=== PATIENT | male | born 1930 | race Caucasian/White ===

== ENCOUNTER 2017-09-01 20:31 | Inpatient (IN) | payer OTHER ==
[2017-09-01 21:19] VITALS: BMI 29.8
--- NOTE | 2017-09-01 22:07 | PDOC ---
History of Present Illness - General History Source: Patient, Family Exam Limitations: No Limitations - History of Present Illness Initial Comments: 09/01/17 22:33 The patient is a 86 year old male, with a significant past medical history of BPH, who presents to the emergency department with, 2 days gross hematuria. The patient was sent in by Dr. Alfredo Lorenzo for gross hematuria and associated nausea without emesis for further medical evaluation. As per patients family, he saw a urologist a few months ago who prescribed him Flomax for his urinary retention. Yesterday his hematuria was light, however, today has gotten progressively worse. He has no prior episodes of hematuria. He denies any recent fevers, chills, headache or dizziness. He denies any recent vomit, diarrhea or constipation. He denies any recent chest pain or shortness of breath. He denies any recent dysuria, frequency, urgency or hematuria. Allergies: NKA Past surgical history: None reported. Social History: Nonsmoker. Denies EtOH use and recreational drug use. Primary Care Physician: Dr. Deangelo Lorenzo Urologist: Dr. Alfredo Lorenzo [phone] <Juana Nicholas - Last Filed: 09/01/17 23:56> <Natalya Mcmullen - Last Filed: 09/02/17 00:14> - General Chief Complaint: Hematuria Stated Complaint: BLOOD IN URINE Time Seen by Provider: 09/01/17 22:06 Past History <Juana Nicholas - Last Filed: 09/01/17 23:56> - Past Medical History COPD: No Disorders: Yes (Prostate) - Suicide/Smoking/Psychosocial Hx Smoking History: Never smoked Information on smoking cessation initiated: No Hx Alcohol Use: No Drug/Substance Use Hx: No <Natalya Mcmullen - Last Filed: 09/02/17 00:14> - Past Medical History Allergies/Adverse Reactions: Allergies Allergy/AdvReac Type Severity Reaction Status Date / Time No Known Allergies Allergy Unverified 03/19/15 08:24 Review of Systems - Review of Systems Able to Perform ROS?: Yes Comments:: 09/01/17 22:34 CONSTITUTIONAL: Absent: fever, no chills, no fatigue EYES: Absent: visual changes ENT: Absent: ear pain, no sore throat CARDIOVASCULAR: Absent: chest pain, no palpitations RESPIRATORY: Absent: cough, no SOB GI: Present: Nausea. Absent: abdominal pain, no vomiting, no constipation, no diarrhea GENITOURINARY: Present: Hematuria. Urinary Retention. Absent: dysuria, no frequency, no hematuria MUSKULOSKELETAL: Absent: back pain, no arthralgia, no myalgia SKIN: Absent: rash NEURO: Absent: headache All Other Systems: Reviewed and Negative <Juana Nicholas - Last Filed: 09/01/17 23:56> *Physical Exam - Vital Signs Last Vital Signs Temp Pulse Resp BP Pulse Ox 99.7 F H 98 H 20 127/78 100 09/01/17 21:14 09/01/17 21:14 09/01/17 21:14 09/01/17 21:14 09/01/17 21:14 - Physical Exam Comments: 09/01/17 22:44 GENERAL: Well developed, well nourished. Looking younger than stated age. Awake and alert. No acute distress. HEENT: Normocephalic, atraumatic. PERRLA, EOMI. No conjunctival pallor. Sclera are non- icteric. Moist mucous membranes. Oropharynx is clear. NECK: Supple. Full ROM. No JVD. Carotid pulses 2+ and symmetric, without bruits. No thyromegaly. No lymphadenopathy. CARDIOVASCULAR: Regular rate and rhythm. No murmurs, rubs, or gallops. Distal pulses are 2+ and symmetric. PULMONARY: No evidence of respiratory distress. Lungs clear to auscultation bilaterally. No wheezing, rales or rhonchi. ABDOMINAL: Soft. Non-tender. Non-distended. No rebound or guarding. No organomegaly. Normoactive bowel sounds. BACK: No flank pain. MUSCULOSKELETAL Normal range of motion at all joints. No bony deformities or tenderness. No CVA tenderness. EXTREMITIES: No cyanosis. No clubbing. No edema. No calf tenderness. SKIN: Warm and dry. Normal capillary refill. No rashes. No jaundice. NEUROLOGICAL: Alert, awake, appropriate. Cranial nerves 2-12 intact. No deficits to light touch and temperature in face, upper extremities and lower extremities. No motor deficits in the in face, upper extremities and lower extremities. Normoreflexic in the upper and lower extremities. Normal speech. Toes are down- going bilaterally. Gait is normal without ataxia. PSYCHIATRIC: Cooperative. Good eye contact. Appropriate mood and affect. <Juana Nicholas - Last Filed: 09/01/17 23:56> - Vital Signs Last Vital Signs Temp Pulse Resp BP Pulse Ox 99.7 F H 98 H 20 127/78 100 09/01/17 21:14 09/01/17 21:14 09/01/17 21:14 09/01/17 21:14 09/01/17 21:14 <Natalya Mcmullen - Last Filed: 09/02/17 00:14> ED Treatment Course - LABORATORY CBC & Chemistry Diagram: 09/01/17 23:00 09/01/17 23:00 <Juana Nicholas - Last Filed: 09/01/17 23:56> - LABORATORY CBC & Chemistry Diagram: 09/01/17 23:00 09/01/17 23:00 <Natalya Mcmullen - Last Filed: 09/02/17 00:14> Medical Decision Making - Critical Care Time Total Critical Care Time (minutes): 60 Critical Care Statement: The care of this patient involved high complexity decision making to prevent further life threatening deterioration of the patient 's condition and/or to evaluate & treat vital organ system(s) failure or risk of failure. <Juana Nicholas - Last Filed: 09/01/17 23:56> - Medical Decision Making 09/01/17 23:59 86-year-old male presents with hematuria and urinary retention. Past medical history is BPH pcp DR FELDER SPOKE W UROLOGIST Dr Veto Lorenzo who wants admission,CBI -pt has low grade temp ,lsukocytosis,UTI and will receive antibiotics <Natalya Mcmullen - Last Filed: 09/02/17 00:14> *DC/Admit/Observation/Transfer - Attestations Scribe Attestion: 09/01/17 22:44 Documentation prepared by Juana Nicholas, acting as medical device for Natalya Mcmullen MD. <Juana Nicholas - Last Filed: 09/01/17 23:56> - Discharge Dispostion Decision to Admit order: Yes <Natalya Mcmullen - Last Filed: 09/02/17 00:14> Diagnosis at time of Disposition: SIRS (systemic inflammatory response syndrome) Fever Qualifiers: Fever type: due to other condition Qualified Code(s): R50.81 - Fever presenting with conditions classified elsewhere UTI (urinary tract infection) Qualifiers: Urinary tract infection type: site unspecified Hematuria presence: with hematuria Qualified Code(s): N39.0 - Urinary tract infection, site not specified ; R31.9 - Hematuria, unspecified Hematuria Qualifiers: Hematuria type: gross Qualified Code(s): R31.0 - Gross hematuria BPH (benign prostatic hyperplasia) Qualifiers: Lower urinary tract symptom presence: symptoms present Lower urinary tract symptom detail: urinary retention Qualified Code(s): N40.1 - Benign prostatic hyperplasia with lower urinary tract symptoms; R33.8 - Other retention of urine - Referrals Referrals: Deangelo Lorenzo MD [Primary Care Provider] - - Patient Instructions - Post Discharge Activity
[2017-09-01] MEDS ORDERED: ONDANSETRON 4 MG/2 ML VIAL IVPUSH ONE (22:08)
[2017-09-01] MEDS ORDERED: ONDANSETRON 4 MG/2 ML VIAL ONE (22:28)
[2017-09-01 23:23] LABS: VENOUS PH 7.46 (7.32-7.42); VENOUS PO2 56.2 mmHg (28-48)
[2017-09-01 23:30] LABS: URINE APPEARANCE CLEAR; URINE BILIRUBIN NEGATIVE (<2.0 mg/dL); URINE COLOR RED; URINE GLUCOSE (UA) 1+ (NEGATIVE); URINE KETONE NEGATIVE (NEGATIVE); URINE LEUK ESTERASE NEGATIVE (NEGATIVE); URINE NITRITE POSITIVE (NEGATIVE); URINE UROBILINOGEN NEGATIVE mg/dL (0.2-1.0)
[2017-09-01 23:34] LABS: BASO % 0.2 % (0-2.0); HEMATOCRIT 43.1 % (35.4-49); HEMOGLOBIN 14.5 GM/dL (11.7-16.9); LYMPH % 6.9 % (8-40); MCH 29.3 pg (25.7-33.7); MCHC 33.5 g/dl (32.0-35.9); MEAN CELL VOLUME 87.4 fl (80-96); MEAN PLT VOLUME 7.9 fl (7.5-11.1); NEUT % 88.9 % (42.8-82.8); RBC 4.94 M/mm3 (4.00-5.60); RDW 13.7 % (11.9-15.9); WHITE BLOOD COUNT 15.7 K/mm3 (4.0-10.0)
[2017-09-01 23:39] LABS: URINE PROTEIN 2+ (NEGATIVE)
[2017-09-01 23:43] LABS: URINE BACTERIA MANY /hpf (NONE SEEN); URINE MUCUS FEW
[2017-09-01 23:45] LABS: ALBUMIN 3.7 g/dl (3.4-5.0); ALK PHOS 49 U/L (45-117); ANION GAP 8 (8-16); BILIRUBIN,TOTAL 1.1 mg/dL (0.2-1.0); BLOOD UREA NITROGEN 22 mg/dL (7-18); CALCIUM 8.7 mg/dL (8.5-10.1); CHLORIDE 100 mmol/L (98-107); CO2 26 mmol/L (21-32); CREATININE 1.2 mg/dL (0.7-1.3); GLUCOSE,RANDOM 140 mg/dL (74-106); SGOT/AST 13 U/L (15-37); SGPT/ALT 20 U/L (12-78); SODIUM 134 mmol/L (136-145); TOT PROT 6.9 g/dl (6.4-8.2)
[2017-09-01] MEDS ORDERED: LIDOCAINE HCL 2% JELLY 10 ML CARTRIDGE ONE (23:46)
[2017-09-01 23:50] LABS: INR 1.13 (0.82-1.09); PROTHROMBIN TIME (PATIENT) 12.8 SEC (9.7-13.0)
[2017-09-01 23:55] LABS: PLATELET COUNT 145 K/MM3 (134-434)
[2017-09-01] MEDS ORDERED: CEFTRIAXONE 1,000 MG in DEXTROSE 5%-WATER - 50 ML IVPB ONE (23:59)
[2017-09-02] MEDS ORDERED: ACETAMINOPHEN 325 MG TABLET (FP) PO ONE (00:03)
[2017-09-02] MEDS ORDERED: CEFTRIAXONE 1 GM/50 ML BAG ONE (00:36)
[2017-09-02] MEDS ORDERED: ACETAMINOPHEN 325 MG TABLET (FP) ONE ×2 (00:36→00:39)
[2017-09-02] MEDS ORDERED: ACETAMINOPHEN 325 MG TABLET (FP) PO PRN (02:40)
[2017-09-02] MEDS: DEXTROSE 5%-0.45% SALINE 1,000 ML IV SCH ×2 (05:47→19:30)
[2017-09-02 06:40] LABS: BASO % 0.2 % (0-2.0); EOS % 0.1 % (0-4.5); HEMATOCRIT 38.7 % (35.4-49); HEMOGLOBIN 13.2 GM/dL (11.7-16.9); LYMPH % 9.8 % (8-40); MCHC 34.2 g/dl (32.0-35.9); MEAN CELL VOLUME 87.5 fl (80-96); MEAN PLT VOLUME 7.2 fl (7.5-11.1); MONO % 4.6 % (3.8-10.2); NEUT % 85.3 % (42.8-82.8); PLATELET COUNT 124 K/MM3 (134-434); RBC 4.42 M/mm3 (4.00-5.60); RDW 13.6 % (11.9-15.9); WHITE BLOOD COUNT 12.7 K/mm3 (4.0-10.0)
[2017-09-02 06:58] LABS: ALBUMIN 3.2 g/dl (3.4-5.0); ANION GAP 9 (8-16); BLOOD UREA NITROGEN 19 mg/dL (7-18); CALCIUM 8.3 mg/dL (8.5-10.1); CHLORIDE 100 mmol/L (98-107); CO2 30 mmol/L (21-32); GLUCOSE,RANDOM 107 mg/dL (74-106); POTASSIUM 3.8 mmol/L (3.5-5.1); SODIUM 139 mmol/L (136-145)
[2017-09-02 07:01] LABS: ALK PHOS 43 U/L (45-117); BILIRUBIN,TOTAL 1.2 mg/dL (0.2-1.0); CREATININE 1.1 mg/dL (0.7-1.3); SGOT/AST 11 U/L (15-37); SGPT/ALT 17 U/L (12-78); TOT PROT 6.2 g/dl (6.4-8.2)
[2017-09-02] MEDS: TAMSULOSIN HCL 0.4 MG CAP.ER.24H (FP) PO SCH (08:43)
--- NOTE | 2017-09-02 09:08 | CON.ID ---
Consult Consult Specialty:: infectious disease Referred by:: akbar Reason for Consultation:: hematuria - History of Present Illness Chief Complaint: 2 day history of hematuria History of Present Illness: 86 year old man admitted with 2 day history of worsening difficulty urinating and hematuria- no fevers or chills recent amox for dental infection- completed 10 days ago called his urologist yesterday and told to come to ED no constipation no abdominal pain no nausea or vomiting started on flomax 3 months ago by PMD wakes up multiple times at night to urinate only other med is baby aspirin 81 mg - History Source History Provided By: Patient, Family Member Limitations to Obtaining History: No Limitations - Past Medical History Heme/Onc: Yes: Cancer (breast cancer 30 years ago) - Past Surgical History Additional Surgical History: breast cancer surgery 30 years ago - Alcohol/Substance Use Hx Alcohol Use: No - Smoking History Smoking history: Former smoker Have you smoked in the past 12 months: No - Social History Usual Living Arrangement: With Spouse ADL: Independent 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 Place of : Other ([place]) History of Recent Travel: No Home Medications - Allergies Allergies/Adverse Reactions: Allergies Allergy/AdvReac Type Severity Reaction Status Date / Time No Known Allergies Allergy Unverified 03/19/15 08:24 - Home Medications Home Medications: Ambulatory Orders Tamsulosin HCl [Flomax] 0.4 mg PO DAILY 09/02/17 Family Disease History - Family Disease History Family History: Unremarkable Review of Systems - Review of Systems Constitutional: reports: No Symptoms Eyes: reports: No Symptoms HENT: reports: No Symptoms Neck: reports: No Symptoms Cardiovascular: reports: No Symptoms. denies: Chest Pain, Edema Respiratory: reports: No Symptoms. denies: Cough, SOB Gastrointestinal: reports: No Symptoms. denies: Abdominal Pain, Constipation, Diarrhea, Nausea, Vomiting Genitourinary: reports: Frequency, Hematuria Breasts: reports: No Symptoms Reported Musculoskeletal: reports: No Symptoms Integumentary: reports: No Symptoms Neurological: reports: No Symptoms Endocrine: reports: No Symptoms Hematology/Lymphatic: reports: No Symptoms Psychiatric: reports: No Symptoms Physical Exam Vital Signs: Vital Signs Temperature 98.1 F 09/02/17 06:00 Pulse Rate 63 09/02/17 06:00 Respiratory Rate 20 09/02/17 06:00 Blood Pressure 167/80 09/02/17 06:00 O2 Sat by Pulse Oximetry (%) 98 09/02/17 04:20 Constitutional: Yes: Well Nourished, No Distress, Calm Eyes: Yes: Conjunctiva Clear, EOM Intact HENT: Yes: Atraumatic, Normocephalic Neck: Yes: Supple Cardiovascular: Yes: Regular Rate and Rhythm Respiratory: Yes: Regular, CTA Bilaterally Gastrointestinal: Yes: Normal Bowel Sounds, Soft. No: Ascites, Distention ...Rectal Exam: Yes: Deferred Renal/: Yes: Breaux Present. No: Bladder Distention Musculoskeletal: Yes: WNL Extremities: Yes: WNL Edema: No Integumentary: Yes: WNL Neurological: Yes: Alert, Oriented Labs: CBC, BMP 09/02/17 06:00 09/02/17 06:00 Laboratory Tests 09/01/17 09/01/17 09/02/17 22:52 22:52 00:37 Lactic Acid 2.1 H 1.7 Urine Protein 2+ H Urine Glucose (UA) 1+ H Urine Ketones Negative Urine WBC (Auto) 411 Urine RBC (Auto) 1833 Urine Bacteria Many 09/02/17 06:00 Lactic Acid 1.7 Urine Protein Urine Glucose (UA) Urine Ketones Urine WBC (Auto) Urine RBC (Auto) Urine Bacteria Imaging - Results Ultrasound: Report Reviewed (markedly thickened bladder wall) Problem List - Problems (1) SIRS (systemic inflammatory response syndrome) Code(s): R65.10 - SIRS OF NON-INFECTIOUS ORIGIN W/O ACUTE ORGAN DYSFUNCTION (2) Hematuria Code(s): R31.9 - HEMATURIA, UNSPECIFIED Qualifiers: Hematuria type: gross Qualified Code(s): R31.0 - Gross hematuria (3) UTI (urinary tract infection) Code(s): N39.0 - URINARY TRACT INFECTION, SITE NOT SPECIFIED Qualifiers: Urinary tract infection type: site unspecified Hematuria presence: with hematuria Qualified Code(s): N39.0 - Urinary tract infection, site not specified; R31.9 - Hematuria, unspecified Assessment/Plan elevated lactic acid, fever of 99.7 on admission per family no prior history of UTI continue ceftriaxone for UTI f/u cultures for urology evaluation of hematuria
--- NOTE | 2017-09-02 09:41 | EKG ---
Test Reason : Blood Pressure : / mmHG Vent. Rate : 061 BPM Atrial Rate : 061 BPM P-R Int : 196 ms QRS Dur : 138 ms QT Int : 428 ms P-R-T Axes : 034 -72 -10 degrees QTc Int : 430 ms NORMAL SINUS RHYTHM LEFT AXIS DEVIATION RIGHT BUNDLE BRANCH BLOCK ABNORMAL ECG NO PREVIOUS ECGS AVAILABLE Confirmed by ELIZABET PATIÑO, TIA ([id number]) on 09/02/2017 9:41:18 AM Referred By: Confirmed By:TIA MCNEAL MD
[2017-09-02] MEDS ORDERED: cefTRIAXone SODIUM 1 GM VIAL ONE (10:12)
[2017-09-02] MEDS ORDERED: DEXTROSE 5%-WATER - 50 ML IVPB ONE (10:13)
[2017-09-02] MEDS: CEFTRIAXONE 1 GM in DEXTROSE 5%-WATER - 50 ML IVPB SCH (10:24)
--- NOTE | 2017-09-02 16:24 | CONS ---
DATE OF CONSULTATION: DATE OF DICTATION: 09/02/2017 HISTORY OF PRESENT ILLNESS: The patient is an 87-year-old male admitted via the emergency room last night with a 3-day history of gross, total-painless hematuria. The patient has symptoms of prostatism, including frequency, urgency, nocturia x7, terminal dribbling, hesitancy, and feelings of incomplete bladder emptying. He has been taking Flomax 2 capsules daily for the past 6 weeks. He denies any other medications. He denies any pre-existing conditions. He denies diabetes or high blood pressure. The patient did have a right radical mastectomy for breast cancer in 1996. 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 He quit smoking 30 years earlier, but did smoke for 30 years prior 2 packs per day. Denies ethanolism or any allergies. Denies any foreign travel. In the emergency room, the patient's temperature was 99.7, blood pressure 127/78, pulse rate 98, respirations 20, O2 saturation 100%. The patient was found to have a distended bladder and a 3-way Breaux with continuous bladder irrigation was commenced. For the first 6 hours, the egress was bloody, but presently it is clear. PHYSICAL EXAMINATION: General: Revealed a well developed and oriented adult male in no apparent distress. Abdomen: Soft. There is no CVA tenderness. Genitourinary: Bladder is not distended. The Breaux is patent. Urine is clear. Testes are normal in size and consistency. No hernias or hydroceles are elicited. Rectal: Exam revealed a 3+, benign, nontender prostate. Saddle sensation is present. Bulbocavernosus reflex is brisk. LABORATORY DATA: The patient's hemoglobin and hematocrit were 13/39. IMPRESSION: At present is an 87-year-old male with gross, total-painless hematuria of 3 days' duration, history of prostatism. Must rule out bladder pathology. PLAN: The patient will need renal-pelvic ultrasounds, followed by cystoscopy with possible TURBT, possible biopsy or possible fulguration. Will follow with you. NEETA ANDRES M.D. [id number]
[2017-09-02] MEDS ORDERED: BUPIVACAINE HCL/PF 0.5% (5MG/ML) 10 ML VIAL ONE (16:32)
[2017-09-02] MEDS ORDERED: LIDOCAINE HCL/PF 2% SDV 5ML VIAL ONE (16:35)
[2017-09-02] MEDS ORDERED: PROPOFOL 20 ML ONE (16:35)
[2017-09-02] MEDS ORDERED: DEXAMETHASONE SOD PHOSPHATE 4 MG/1 ML VIAL ONE (16:35)
[2017-09-02] MEDS ORDERED: ceFAZolin SODIUM 1 GM VIAL IVPB ONE ×2 (16:45)
[2017-09-02] MEDS ORDERED: oxyCODONE HCL 5 MG TABLET PO PRN (16:48)
[2017-09-02] MEDS ORDERED: ONDANSETRON 4 MG/2 ML VIAL IVPUSH PRN (16:48)
[2017-09-02] MEDS ORDERED: PROMETHAZINE HCL 25 MG/1 ML VIAL IVPB PRN (16:48)
[2017-09-02] MEDS ORDERED: ceFAZolin SODIUM 1 GM VIAL ONE (16:53)
--- NOTE | 2017-09-02 18:50 | HP ---
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 History of Recent Travel: No Home Medications - Allergies Allergies/Adverse Reactions: Allergies Allergy/AdvReac Type Severity Reaction Status Date / Time No Known Allergies Allergy Unverified 03/19/15 08:24 - Home Medications Home Medications: Ambulatory Orders Tamsulosin HCl [Flomax] 0.4 mg PO DAILY 09/02/17 Cefuroxime Axetil [Ceftin -] 500 mg PO BID #20 tablet 09/03/17 Oxybutynin Chloride [Ditropan -] 10 mg PO DAILY #30 tablet 09/03/17 Tamsulosin HCl [Flomax] 0.4 mg PO DAILY #30 cap.er.24h 09/03/17 Physical Examination Vital Signs: Vital Signs Temperature 98.5 F 09/02/17 14:28 Pulse Rate 71 09/02/17 14:28 Respiratory Rate 16 09/02/17 14:28 Blood Pressure 151/71 09/02/17 14:28 O2 Sat by Pulse Oximetry (%) 98 09/02/17 08:45 Labs: CBC, BMP 09/02/17 06:00 09/02/17 06:00 Problem List - Problems (1) BPH (benign prostatic hyperplasia) Code(s): N40.0 - BENIGN PROSTATIC HYPERPLASIA WITHOUT LOWER URINRY TRACT SYMP Qualifiers: Lower urinary tract symptom presence: symptoms present Lower urinary tract symptom detail: urinary retention Qualified Code(s): N40.1 - Benign prostatic hyperplasia with lower urinary tract symptoms; R33.8 - Other retention of urine (2) Hematuria Code(s): R31.9 - HEMATURIA, UNSPECIFIED Qualifiers: Hematuria type: gross Qualified Code(s): R31.0 - Gross hematuria (3) SIRS (systemic inflammatory response syndrome) Code(s): R65.10 - SIRS OF NON-INFECTIOUS ORIGIN W/O ACUTE ORGAN DYSFUNCTION
--- NOTE | 2017-09-02 20:54 | OP ---
DATE OF OPERATION: DATE OF DICTATION: 09/02/2017 PREOPERATIVE DIAGNOSIS: Patient is an 86-year-old male with clot retention, gross hematuria. POSTOPERATIVE DIAGNOSIS: Trabeculated bladder, hemorrhagic cystitis, and hemorrhagic obstructing prostate. OPERATIVE PROCEDURE: Cystourethroscopy. Evacuation of clots. Transurethral vaporization of prostate. Transurethral resection of prostate. ANESTHESIA: General. BLOOD LOSS: 40 mL. RESECTION TIME: 30 minutes under above stated anesthesia. DESCRIPTION OF PROCEDURE: Patient is prepped and draped in the usual sterile manner. A 30-degree continuous scope was introduced under direct vision. Anterior urethra was within normal limits. Prostatic urethra revealed trilobar hypertrophy of the prostate with severe hemorrhagic mucosa. The verumontanum was also injected. The bladder was entered. Several organized clots were seen in the bladder. An Ellik evacuator was introduced and the clots were evacuated. Inspection of a bladder revealed a grade 4 trabeculation with multiple diverticulum. Ureteral orifices were within normal limits with reflux of clear urine. No lesions were noted. No calculi were seen. Dome and lateral altamirano were clear of any lesions due to the bleeding, obstructing prostate and the grade 4 trabeculation. The prostate was then vaporized in the usual fashion. This was commenced at the 6 o'clock position of the right lateral lobe and went on up to the 12 o'clock position. Same thing was done to the left lateral lobe. Lastly, the median lobe was vaporized. Several loose chips were resected with a loop. Prostate chips were evacuated with an Ellik evacuator. No active bleeding was noted. Therefore the bladder was emptied, the scope was removed. The 24 Congolese 3-way, 30-mL Breaux was introduced. This was connected to continuous bladder irrigation. The patient tolerated the procedure well. He returned to the recovery room in good condition. Jaswinder [id number]
[2017-09-03 09:04] LABS: BASO % 0.1 % (0-2.0); HEMATOCRIT 39.4 % (35.4-49); HEMOGLOBIN 13.3 GM/dL (11.7-16.9); LYMPH % 7.9 % (8-40); MCH 29.8 pg (25.7-33.7); MCHC 33.7 g/dl (32.0-35.9); MEAN CELL VOLUME 88.4 fl (80-96); MONO % 4.8 % (3.8-10.2); NEUT % 87.2 % (42.8-82.8); PLATELET COUNT 128 K/MM3 (134-434); RBC 4.45 M/mm3 (4.00-5.60); RDW 13.8 % (11.9-15.9); WHITE BLOOD COUNT 12.3 K/mm3 (4.0-10.0)
[2017-09-03] MEDS ORDERED: cefTRIAXone SODIUM 1 GM VIAL ONE (09:04)
[2017-09-03] MEDS ORDERED: DEXTROSE 5%-WATER - 50 ML IVPB ONE (09:04)
--- NOTE | 2017-09-03 09:40 | PN ---
Progress Note (short form) - Note Progress Note: UROLOGY NOTE 86 Y/O Male with history of Gross hematuria S/P TUVP 09/02/2017 on CBI, doing well clear urine, no pain, will D/C CBI and connect the preciado to leg bag, patient can go home with preciado catheter to leg bag, keflex 500 mg TID, RTC Thursday09/07/2017 10 AM at [facility] .
[2017-09-03] MEDS: TAMSULOSIN HCL 0.4 MG CAP.ER.24H (FP) PO SCH (11:19)
[2017-09-03] MEDS: CEFTRIAXONE 1 GM in DEXTROSE 5%-WATER - 50 ML IVPB SCH (11:19)
[2017-09-03] MEDS ORDERED: OXYBUTYNIN CHLORIDE 5 MG TABLET PO SCH (11:45)
--- NOTE | 2017-09-03 13:00 | PN ---
Progress Note (short form) - Note Progress Note: Anesthesia postop note 86 y/o M s/p GA for cystoscopy POD#1, vss, aaox3, no complaints No anesthesia complications.
[2017-09-03 14:33] VITALS: BP 155/85; PULSE 62; TEMP 98.3
--- NOTE | 2017-09-03 14:55 | PN ---
Progress Note (short form) - Note Progress Note: ID NAD Ceftriaxone Selected Entries 09/03/17 14:32 Temperature 98.3 F Pulse Rate 62 Respiratory 16 Rate Blood Pressure 155/85 Abd Soft nontender Microbiology 09/01/17 23:00 Blood - Peripheral Venous Blood Culture - Preliminary NO GROWTH OBTAINED AFTER 24 HOURS, INCUBATION TO CONTINUE FOR 4 DAYS. 09/01/17 22:57 Blood - Peripheral Venous Blood Culture - Preliminary NO GROWTH OBTAINED AFTER 24 HOURS, INCUBATION TO CONTINUE FOR 4 DAYS. 09/01/17 22:52 Urine - Urine Clean Catch Urine Culture - Preliminary Lactose Fermenting Neg Bacilli Laboratory Tests 09/01/17 09/02/17 09/03/17 22:52 06:00 06:00 WBC 12.3 H Hgb 13.3 Plt Count 128 L BUN 19 H Creatinine 1.1 Creat Clearance w eGFR > 60 Ur Leukocyte Esterase Negative Urine WBC (Auto) 411 Urine Bacteria Many Assessment Gram negative UTI sensi pending Plan Discharge planning but would like to see final culture or follow up as outpt result ? Ceftin 500mg bid
[2017-09-03] MEDS ORDERED: CEFUROXIME AXETIL 500 MG TABLET PO SCH (22:00)
--- NOTE | 2017-09-04 15:31 | PATH ---
Surgical Pathology Report Patient Name: JUAN MANUEL PALACIO [facility]. Rec. #: [id number] /Age/Gender: 1930 (Age: 86) / M Account: [id number] Location: [facility] PEDS/ADOL Taken: 09/02/2017 Received: 09/03/2017 Reported: 09/04/2017 Physicians: Jaswinder Petit M.D. Specimen(s) Received PROSTATE CHIPS Clinical History Gross hematuria Final Diagnosis PROSTATE TISSUE, TRANSURETHRAL RESECTION OF PROSTATE AND BLADDER BLOOD CLOT EVACUATION: ACUTE CYSTITIS ADMIXED WITH BLOOD CLOTS CONSISTENT WITH HEMORRHAGIC CYSTITIS AND RARE MICROCALCIFICATIONS BENIGN PROSTATIC TISSUE WITH GLANDULAR AND STROMAL HYPERPLASIA. Electronically Signed Christie Melo M.D. Gross Description Received in formalin labeled "prostate tissue" are multiple fragments of white -sam focally hemorrhagic tissue measuring 2 x 1 x 0.5 cm in aggregate. Entire specimen submitted in one cassette. JAMA/09/03/2017 dano/09/03/2017
--- NOTE | 2017-09-10 12:00 | DS ---
Physical Examination Vital Signs: Vital Signs Temperature 98.3 F 09/03/17 14:32 Pulse Rate 62 09/03/17 14:32 Respiratory Rate 16 09/03/17 14:32 Blood Pressure 155/85 09/03/17 14:32 O2 Sat by Pulse Oximetry (%) 96 09/03/17 10:00 Labs: CBC, BMP 09/03/17 06:00 09/02/17 06:00 Discharge Summary Reason For Visit: FEVER SIRS UTI Condition: Good - Instructions Diet, Activity, Other Instructions: See Dr Joe Lorenzo on Thursday See Dr Deangelo Lorenzo on Thursday also Regular diet Referrals: Deangelo Lorenzo MD [Primary Care Provider] - Disposition: HOME - Home Medications Comprehensive Discharge Medication List: Ambulatory Orders Tamsulosin HCl [Flomax] 0.4 mg PO DAILY 09/02/17 Cefuroxime Axetil [Ceftin -] 500 mg PO BID #20 tablet 09/03/17 Oxybutynin Chloride [Ditropan -] 10 mg PO DAILY #30 tablet 09/03/17 Tamsulosin HCl [Flomax] 0.4 mg PO DAILY #30 cap.er.24h 09/03/17
== END 2017-09-03 17:44 | disposition home or self-care (01) | DRG 666 ==
LOC: JER 20:31 → SUPCPDRO 20:31 → JERBED 09-02 00:14 → UNDOADMIN 09-02 00:24 → JERBED 09-02 00:24 → J4S 09-02 03:08
PROVIDERS: ADMIT Internal Medicine; ATTEND Internal Medicine
PROC: 0V507ZZ Destruction of Prostate, Via Natural or Artificial Opening (ICD-10-PCS; 2017-09-02)
PROC: 0TCB8ZZ Extirpation of Matter from Bladder, Via Natural or Artificial Opening Endoscopic (ICD-10-PCS; 2017-09-02)
PROC: 0VT08ZZ Resection of Prostate, Via Natural or Artificial Opening Endoscopic (ICD-10-PCS; principal; 2017-09-02 14:00)
DX: N32.89 Other specified disorders of bladder (principal); N39.0 Urinary tract infection, site not specified; R31.0 Gross hematuria; N40.1 Benign prostatic hyperplasia with lower urinary tract symptoms; B96.20 Unspecified Escherichia coli [E. coli] as the cause of diseases classified elsewhere
CPT/HCPCS: 36415; 71045-TC-FY; 76775-TC; 76856-TC; 80053; 81003; 81015; 82803; 83605; 84484; 85025; 85610; 85730; 86850; 86900; 86901; 87040; 87086; 87186; 88305-TC; 93005; 93010; 94010; 94760; 99282-25

== ENCOUNTER 2020-05-17 16:50 | Emergency (ER) | payer OTHER ==
[2020-05-17 17:25] VITALS: TEMP 98.5; BMI 26.5
[2020-05-17 19:16] LABS: BASO % 1.1 % (0-2.0); EOS % 3.3 % (0-4.5); HEMATOCRIT 31.3 % (35.4-49); HEMOGLOBIN 10.1 GM/dL (11.7-16.9); LYMPH % 29.2 % (8-40); MCH 29.9 pg (25.7-33.7); MCHC 32.4 g/dl (32.0-35.9); MEAN CELL VOLUME 92.2 fl (80-96); MEAN PLT VOLUME 7.3 fl (7.5-11.1); MONO % 9.5 % (3.8-10.2); NEUT % 56.9 % (42.8-82.8); PLATELET COUNT 173 K/MM3 (134-434); RDW 16.3 % (11.9-15.9); WHITE BLOOD COUNT 4.1 K/mm3 (4.0-10.0)
[2020-05-17 19:21] VITALS: BP 119/88; PULSE 105
[2020-05-17 19:38] LABS: CALCIUM 8.6 mg/dL (8.5-10.1)
[2020-05-17 19:39] LABS: ALBUMIN 2.5 g/dl (3.4-5.0); BLOOD UREA NITROGEN 39.8 mg/dL (7-18)
[2020-05-17 19:42] LABS: CREATININE 2.3 mg/dL (0.55-1.3)
[2020-05-17 19:44] LABS: BILIRUBIN,TOTAL 0.2 mg/dL (0.2-1); TOT PROT 5.8 g/dl (6.4-8.2)
[2020-05-17 21:01] LABS: BF WBC & OTHER NUCLEATED CELLS 1552 /mm3
[2020-05-17 21:49] LABS: BODY FLUID MACROPHAGES 16 %; BODY FLUID MONOCYTE 2 %
== END 2020-05-17 19:30 | disposition home or self-care (01) ==
LOC: JER 16:50
DX: R84.9 Unspecified abnormal finding in specimens from respiratory organs and thorax (principal)
CPT/HCPCS: 36415; 71250-TC; 80053; 83615; 83880; 84484; 85025; 99285-25

== ENCOUNTER → 2020-07-31 | Day surgery (SDC) | payer OTHER | END | disposition home or self-care (01) | LOC: JRADIR 11:29 | PROVIDERS: ATTEND Internal Medicine | PROC: 0WP900Z Removal of Drainage Device from Right Pleural Cavity, Open Approach (ICD-10-PCS; principal; 2020-07-31) | DX: Z46.82 Encounter for fitting and adjustment of non-vascular catheter (principal); J90 Pleural effusion, not elsewhere classified | CPT/HCPCS: 32552; 71046-TC-FY ==